=== PATIENT | female | born 1990 | race Caucasian/White ===

== ENCOUNTER 2019-06-23 14:08 | Emergency (ER) | payer OTHER, SELFPAY ==
--- NOTE | 2019-06-23 16:11 | ULT ---
Pelvic ultrasound: HISTORY: Small amount of brownish vaginal discharge and a patient with reported . FINDINGS: Limited sonographic evaluation of the pelvis was obtained. Provided images demonstrate magnified imag es of the uterus and ovaries. There is a fluid collection seen within the endometrial canal. There does appear to be evidence of a pole with crown-rump length measuring 0.67 cm corresponding to gestational age by ultrasound of 6 weeks and 3 days. Cardiac Doppler does not demonstrate definite heart tones. There is suggestion of a small heterogeneous subchorionic collection which likely represents a subchorionic hemorrhage measuring 1.8 cm. The left ovary is only partially imaged and has a grossly normal sonographic appearance. The right ov alyssa is not visualized. Due to magnified images being provided, there is limited evaluation for free fluid in the pelvis, but no obvious free fluid is appreciated. IMPRESSION: 1. Limited examination demonstrating evidence of an intrauterine gestation. There is a pole wit h gestational age by measurement of the crown-rump length of 6 weeks and 3 days. However, no heart tones are detected at this time. demise cannot be excluded given undetectable heart tones. distribution technician does note a small jane or on color flow evaluation. As a result, correlation with quantitative beta hCG level as well as follow-up ultrasound examination is recommend ed to ensure that no heart tones are able to be detected. 2. Suggestion of small subchorionic hemorrhage measuring 1.8 cm.
== END 2019-06-23 16:29 | disposition home or self-care (01) ==
LOC: NAV ERS 14:08
DX: O20.9 Hemorrhage in early pregnancy, unspecified (principal); Z3A.09 9 weeks gestation of pregnancy
CPT/HCPCS: 76805